=== PATIENT | male | born 1980 | race American Indian/Alaskan Native ===

== ENCOUNTER 2019-07-07 12:05 | Observation (INO) | payer MEDICARE ==
--- NOTE | 2019-07-07 12:38 | Short Stay Summary ---
Short Stay Documentation Date of service: 07/07/19 Narrative H&P: 39 year old male with ESRD who presents with AV access malfunction. R/B/A of AV graft intervention, possible permcath discussed. - History Principal diagnosis: AV access malfunction, surgically created Past Medical History: dialysis, ESRD, HIV/AIDS, other (chronic lower exteremity wounds) Past Surgical History: Other (lower extremity arterial and venous procedures) - Physical exam General appearance: no acute distress, other (uses motorized scooter) Lungs: Normal air movement Extremities: abnormal (bandaged Le, LUE AV access with weak pulse) - Brief post op/procedure progress note Date of procedure: 07/07/19 - Hospital course Hospital course: Had K initially 7.9 hemolysis noted, then came back 6.8. Patient declines vascath with overnight stay and fistulogram tomorrow. Plan will be to have patient have dialysis through left arm AVF which has malfunction to attempt to decrease potassium and patient will then go to dialysis clinic tomorrow. Dr. Cooley and Dr. Diaz alerted. Unfortunately, patient declines vascath at this time. Will plan for repeat fistulogram next saturday. Patient understands his decisions are not medically advisable, and he understands he is placing himself at risk for by hyperkalemia. Patient will be admitted by hospitalist service and Dr. Cooley will place dialysis orders. Short Stay Discharge Plan Follow up with: PRIMARY CAREMD [Primary Care Provider] - 7 Days
[2019-07-07] MEDS ORDERED: HEPARIN/NS 5000 UNIT/500ML 1,000 ML IR ONE (12:41)
[2019-07-07] MEDS ORDERED: HEPARIN 10,000 UNITS/10 ML VIAL ONE (12:42)
[2019-07-07] MEDS ORDERED: LIDOCAINE (2%) 20 MG/1 ML VIAL 20 ML MDV INFILTRATI ONE (12:42)
[2019-07-07] MEDS ORDERED: ceFAZolin/Water 2 GM/20 ML 0 GM/0 ML SYRINGE IV ONE (12:43)
[2019-07-07] MEDS ORDERED: ONDANSETRON 4 MG/2 ML INJ IV ONE (13:11)
[2019-07-07] MEDS ORDERED: fentaNYL 100 MCG/2 ML INJ ONE (13:20)
[2019-07-07] MEDS ORDERED: PROPOFOL 200 MG/20 ML VIAL IV ONE ×4 (13:21)
[2019-07-07] MEDS ORDERED: KETAMINE/STERILE WATER 50 MG/ML SYRINGE ONE (13:21)
[2019-07-07] MEDS ORDERED: ePHEDrine SULFATE 50 MG/1 ML INJ ONE (13:23)
[2019-07-07 13:26] LABS: Hematocrit 32.3 % (35.5-45.6); Hemoglobin 10.4 gm/dl (11.8-15.2); Mean Corpuscular HGB Conc 32 % (32-34); Mean Corpuscular Volume 86 fl (84-94); Platelet Count 298 K/mm3 (140-440); Red Blood Count 3.77 M/mm3 (3.65-5.03)
[2019-07-07 13:38] LABS: INR 1.15 (0.87-1.13); Partial Thromboplastin Time 34.1 Sec. (24.2-36.6)
[2019-07-07 13:50] LABS: Blood Urea Nitrogen TNR mg/dL (9-20)
[2019-07-07 13:51] LABS: BUN/Creatinine Ratio TNR; Calcium TNR mg/dL (8.4-10.2); Hemolysis Index TNR
--- NOTE | 2019-07-07 13:53 | Anesthesia Consultation ---
Anesthesia Consult and Med Hx Date of service: 07/07/19 - Airway Anesthetic Teeth Evaluation: Good ROM Head & Neck: Adequate Mental/Hyoid Distance: Adequate Mallampati Class: Class I Intubation Access Assessment: Good - Pulmonary Exam CTA: Yes - Cardiac Exam Cardiac Exam: RRR (grade 3) - Pre-Operative Health Status ASA Pre-Surgery Classification: ASA3 Proposed Anesthetic Plan: MAC - Pulmonary Hx Smoking: No Hx Respiratory Symptoms: No - Cardiovascular System Hx Hypertension: Yes (previous hx since childhood; normotensive off medications x many yrs) Hx Heart Attack/AMI: No Hx Percutaneous Transluminal Coronary Angioplasty (PTCA): No Hx Cardia Arrhythmia: No Hx Heart Murmur: Yes Hx Peripheral Vascular Disease: Yes - Central Nervous System Hx Seizures: No CVA: No - Gastrointestinal Hx Gastroesophageal Reflux Disease: No - Endocrine Hx End Stage Renal Disease: Yes (last HD 07/06) Hx Liver Disease: No Hx Insulin Dependent Diabetes: No Hx Non-Insulin Dependent Diabetes: No Hx Thyroid Disease: No - Hematic Hx Anemia: Yes - Other Systems Hx Obesity: No - Additional Comments Anesthesia Medical History Comments: HIV positive
--- NOTE | 2019-07-07 13:54 | Anesthesia Day of Surgery ---
Anesthesia Day of Surgery - Day of Surgery Patient Examined: Yes Patient H&P Reviewed: Yes Patient is NPO: Yes
[2019-07-07] MEDS ORDERED: SODIUM CHLORIDE 0.9% 1000 ML 1,000 ML IV SCH (14:00)
[2019-07-07 15:01] LABS: Calcium 7.7 mg/dL (8.4-10.2)
[2019-07-07 15:39] LABS: Basophils % (Manual) 0 % (0.0-1.8); Total Cells Counted 100
[2019-07-07 15:40] LABS: Anisocytosis 1+; Platelet Estimate Consistent w Auto; Target Cells Rare
--- NOTE | 2019-07-07 17:00 | Consultation ---
History of Present Illness - History of Present Illness 39 year old with medical history of HTN, ESRD, HIV presented to the vascular lab today for AVF fistulagram and was unable to complete procedure. Labs show k ; 6.8. Patient did not complete dialysis session yesterday had only 2hrs of treatment as he arrived late for dialysis . He denies any edema. He has lower extremity wounds for the past few months and has been getting wound care at [facility]. Denies any fever or chills. Denies any nausea,vomitting or abdominal pain. Past History Past Medical History: dialysis, ESRD, HIV/AIDS, other (chronic lower exteremity wounds) Past Surgical History: Other (lower extremity arterial and venous procedures) Medications and Allergies Allergies Allergy/AdvReac Type Severity Reaction Status Date / Time No Known Allergies Allergy Verified 07/07/19 13:10 Home Medications Medication Instructions Recorded Confirmed Last Taken Type Etravirine [Intelence] 200 mg PO BID 07/07/19 07/07/19 07/06/19 History 200 mg Gabapentin [Neurontin] 600 mg PO BID 07/07/19 07/07/19 07/06/19 History 600 mg Ibuprofen [Motrin 800 MG tab] 800 mg PO DAILY PRN 07/07/19 07/07/19 07/07/19 History 800 mg Raltegravir Potassium [Isentress 600 mg PO DAILY 07/07/19 07/07/19 07/06/19 History Hd] 600 mg Active Meds: Active Medications Sodium Chloride (Nacl 0.9% 1000 Ml) 1,000 mls @ 42 mls/hr IV DIRECT CHRISTIAN Review of Systems Constitutional: no weight loss, no weight gain Ears, nose, mouth and throat: no deferred, no ear pain Cardiovascular: no chest pain, no orthopnea, no palpitations Respiratory: no cough, no cough with sputum Gastrointestinal: no abdominal pain, no nausea, no vomiting Genitourinary Male: no dysuria, no hematuria Rectal: no pain, no incontinence Musculoskeletal: no neck stiffness Integumentary: no deferred Neurological: no head injury, no transient paralysis Psychiatric: no anxiety, no memory loss Endocrine: no cold intolerance, no heat intolerance Hematologic/Lymphatic: no easy bruising, no easy bleeding Exam - Vital Signs Vital signs: Vital Signs Temp Pulse Resp BP Pulse Ox 98.1 F 97 H 18 99/73 99 07/07/19 14:17 07/07/19 14:17 07/07/19 14:17 07/07/19 14:17 07/07/19 14:17 - General Appearance General appearance: well-developed, well-nourished EENT: ATNC, PERRL, mucous membranes moist Neck: Present: neck supple Respiratory: Clear to Ascultation Heart: regular, S1S2 Gastrointestinal: Present: normal, normoactive bowel sounds Integumentary: rash, other (lower extremity wounds with dressing. ) Neurologic: alert and oriented x3, CN 3-12 intact Musculoskeletal: Present: other (swelling. ) Psychiatric: mood/affect appropriate Results - Lab Results 07/07/19 13:15 07/07/19 14:32 Most recent lab results Calcium 7.7 mg/dL (8.4-10.2) L 07/07/19 14:32 Assessment and Plan - Patient Problems (1) End stage renal disease Current Visit: Yes Status: Acute Plan to address problem: ESRD on hemodialysis - Will initiate hemodialysis - Dialysis orders placed. Dialysis nurse informed to bring the patient to dialysis as soon as possible. (2) Hyperkalemia, diminished renal excretion Current Visit: Yes Status: Acute Plan to address problem: hyperkalemia - Will initiate HD - 2/2 ESRD with incomplete dialyisis . - Will order calcium gluconate as well. - Albuterol treatment - HD now. (3) Acidosis Current Visit: Yes Status: Acute Plan to address problem: metabolic acidosis 2/2 inadequate treatment - Will intiate HD. (4) Hypotension Current Visit: Yes Status: Acute Qualifiers: Hypotension type: idiopathic hypotension Qualified Code(s): I95.0 - Idiopathic hypotension Plan to address problem: associated hypotension - midodrine 10mg now .
[2019-07-07] MEDS ORDERED: ALBUTEROL 2.5 MG/3 ML NEBU IH ONE (18:01)
[2019-07-07] MEDS ORDERED: CALCIUM GLUCONATE 1,000 MG in SODIUM CHLORIDE 0.9% 100 ML IV ONE (18:04)
[2019-07-07] MEDS ORDERED: MIDODRINE 5 MG TAB PO ONE (18:06)
[2019-07-07 19:17] LABS: Hepatitis B Surface Antigen Non-Reactive (Negative); Hepatitis C Virus Antibody Non-Reactive (NonReactive)
[2019-07-07] MEDS ORDERED: ACETAMINOPHEN 325 MG TAB PO PRN (19:32)
[2019-07-07] MEDS ORDERED: ONDANSETRON 4 MG/2 ML INJ IV PRN (19:32)
[2019-07-07] MEDS ORDERED: oxyCODONE /ACETAMINOPHEN 5-325MG TAB PO PRN (19:32)
--- NOTE | 2019-07-07 19:32 | Event Note ---
Date: 07/07/19 See history and physical in the reports End-stage renal disease needing dialysis Hyperkalemia Patient wants to be discharged after the dialysis.
--- NOTE | 2019-07-07 19:45 | Discharge Summary ---
Providers - Providers Date of Admission: 07/07/19 17:17 Date of discharge: 07/07/19 Attending physician: COLE DAVID 07/07/19 16:09 Consult to Physician [CONS] Routine Comment: Consulting Provider: TRAM MERAZ Physician Instructions: Reason For Exam: esrd, hyperkalemia Primary care physician: THREAD SPOOLER Hospitalization Hospital course: Discharge summary dictated Disposition: DC-01 TO HOME OR SELFCARE Core Measure Documentation - Palliative Care Palliative Care/ Comfort Measures: Not Applicable - Core Measures Any of the following diagnoses?: none Exam - Constitutional Vitals: Temp Pulse Resp BP Pulse Ox 97.7 F 84 16 110/68 98 07/07/19 17:50 07/07/19 17:50 07/07/19 17:50 07/07/19 17:50 07/07/19 17:50 General appearance: Present: no acute distress, well-nourished - EENT Eyes: Present: PERRL ENT: hearing intact, clear oral mucosa - Neck Neck: Present: supple, normal ROM - Respiratory Respiratory effort: normal Respiratory: bilateral: CTA - Cardiovascular Heart rate: 78 Rhythm: regular Heart Sounds: Present: S1 & S2. Absent: rub, click - Extremities Extremities: pulses symmetrical, No edema Peripheral Pulses: within normal limits - Abdominal General gastrointestinal: Present: soft, non-tender, non-distended, normal bowel sounds Male genitourinary: Present: normal - Integumentary Integumentary: Present: clear, warm, dry - Musculoskeletal Musculoskeletal: gait normal, strength equal bilaterally - Psychiatric Psychiatric: appropriate mood/affect, intact judgment & insight - Neurologic Neurologic: CNII-XII intact, moves all extremities Plan Activity: no restrictions Diet: renal Follow up with: EDGAR ESQUIVEL MD [Primary Care Provider] - 7 Days TRAM MERAZ MD [Staff Physician] - 7 Days
--- NOTE | 2019-07-07 20:05 | History and Physical Report ---
CHIEF COMPLAINT: 1. Needs dialysis. 2. High potassium level. HISTORY OF PRESENT ILLNESS: A 39-year-old -[place] male with history of end-stage renal disease, hypertension, HIV, presented to the vascular lab for AV fistulogram and was unable to complete the procedure. Labs show potassium of 6.8. The patient did not complete dialysis session yesterday. Had only 2 hours of treatment because of late arrival for dialysis. No shortness of breath. 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 The patient gets wound care at [facility]. No fever, no nausea, no vomiting. PAST MEDICAL HISTORY: Significant for end-stage renal disease with dialysis, HIV and hypertension and chronic lower extremity wounds. PAST SURGICAL HISTORY: AVF on the right arm. SOCIAL HISTORY: Smokes over half a pack a day. No alcohol, no recreational drugs. FAMILY HISTORY: Hypertension. REVIEW OF SYSTEMS: Significant for no shortness of breath. No weight loss. Bilateral lower extremity wounds. Otherwise, review of systems negative. A 14-point review of systems done. CURRENT MEDICATIONS: Entravirine 200 mg twice a day, Neurontin 600 mg twice a day, ibuprofen 800 mg b.i.d. p.r.n. and Isentress 600 mg p.o. daily. PHYSICAL EXAMINATION: GENERAL: A young male, cooperative during examination. VITAL SIGNS: Blood pressure is 99/73, temperature is 98.1, pulse is 97, respirations 18, sats are 99%. HEENT: Unremarkable. Pupils equal and reactive. NECK: Supple, no lymphadenopathy, no thyromegaly. LUNGS: Clear to auscultation and percussion. Good air entry. CARDIOVASCULAR: S1, S2 heard. No gallop, no murmur, no rub. Apical impulse in left fifth intercostal space and midclavicular line. ABDOMEN: Soft and benign. No hepatosplenomegaly. No guarding, no rigidity. Hernial orifices are normal. EXTREMITIES: Good pedal pulses. No pedal edema. CENTRAL NERVOUS SYSTEM: Alert and oriented x 4, nonfocal exam. LABORATORY DATA: Significant for white count of 7300, H and H of 10.4 and 32.3, platelet count is 298,000. Potassium is 6.8. Sodium is 132, BUN and creatinine 72 and 10.2, calcium is 7.7. Hepatitis profile is nonreactive. ASSESSMENT AND PLAN: 1. Hyperkalemia. The patient has been taken to emergent hemodialysis. 2. Hypertension. The patient is also slightly hypotensive. Decreased ultrafiltration, but low sodium bath to preserve the volume. 3. Hyponatremia, mild. Should correct with dialysis. 4. End-stage renal disease. Continue hemodialysis. 5. Human immunodeficiency virus. Continue antiretrovirals. The patient is going home, the patient to take his own medications. 6. Peripheral neuropathy. The patient is to continue gabapentin. 7. Deep venous thrombosis prophylaxis, heparin 5000 q. 12. JOB# [id number] VSM/NTS
[2019-07-07] MEDS ORDERED: SODIUM CHLORIDE*PRIMING MACHINE ONLY FOR DIALYSIS MC ONE (21:16)
[2019-07-07] MEDS ORDERED: FAMOTIDINE 10 MG TAB PO SCH (22:00)
[2019-07-08] MEDS: HYDROmorphone 1 MG/1 ML INJ IV PRN ×2 (00:36→03:05)
[2019-07-08 00:41] VITALS: BP 89/65
[2019-07-08 02:26] LABS: Hematocrit 30.4 % (35.5-45.6); Hemoglobin 9.8 gm/dl (11.8-15.2); Mean Corpuscular HGB Conc 32 % (32-34); Mean Corpuscular Volume 85 fl (84-94); Platelet Count 289 K/mm3 (140-440); Red Blood Count 3.58 M/mm3 (3.65-5.03)
[2019-07-08 02:37] LABS: Red Cell Distribution Width 22.9 % (13.2-15.2)
--- NOTE | 2019-07-08 04:05 | Discharge Summary ---
HOSPITAL COURSE: The patient was admitted for hyperkalemia and end-stage renal disease. The patient had an attempted AV fistulogram which was unsuccessful. AV fistula was malfunctioning, but I am unable to dialysis. The patient had hemodialysis in the [facility] because of his hyperkalemia and 2-hour hemodialysis yesterday to prevent volume overload. The patient underwent dialysis successfully. Repeat potassium is normal. The patient to be discharged home on his home medications. DISCHARGE DIAGNOSES: 1. Hyperkalemia, treated. 2. End-stage renal disease with hemodialysis. The patient had hemodialysis. 3. Hypertension. The patient is normotensive. 4. Human immunodeficiency virus. Continue antiretrovirals. 5. _Hypocalcemia__, mild. Calcium supplements. DISCHARGE INSTRUCTIONS: Discharged home. Follow up with dialysis clinic tomorrow, which is his regular hemodialysis clinic day. Also, follow up with Nephrology, Dr. Cooley. JOB# [id number] LANI/TRE BARRON
[2019-07-08 06:04] LABS: Anisocytosis 1+; Basophils % (Manual) 0 % (0.0-1.8); Platelet Estimate Consistent w Auto; Total Cells Counted 100
[2019-07-08 06:05] LABS: Schistocytes Few
[2019-07-08 06:06] LABS: Target Cells Few
== END 2019-07-08 05:00 | disposition home or self-care (01) ==
LOC: CATHLABREC 12:05 → 3A 17:17
PROVIDERS: ADMIT Internal Medicine; ATTEND Internal Medicine
DX: E87.5 Hyperkalemia (principal); I12.0 Hypertensive chronic kidney disease with stage 5 chronic kidney disease or end stage renal disease; N18.6 End stage renal disease; E87.1 Hypo-osmolality and hyponatremia; E83.51 Hypocalcemia; G62.9 Polyneuropathy, unspecified; F17.210 Nicotine dependence, cigarettes, uncomplicated; Z21 Asymptomatic human immunodeficiency virus [HIV] infection status; Z99.2 Dependence on renal dialysis
CPT/HCPCS: 36415; 80048; 80074; 84132; 85007; 85025; 85610; 85730; 96374; 96375; 96376; G0378; J0610; J1170; J1644; J2405; J2704; J7030; J0690; J3010